=== PATIENT | male | born 1945 | race Caucasian/White ===

== ENCOUNTER 2020-04-11 18:35 | Inpatient (IN) | payer OTHER ==
[~2020-04-11] VITALS: Ht 172.7 cm; Wt 78.0 kg
[~2020-04-11 18:35] MED LIST: ASPIRIN325 PO; HYDROCHLOROTH12.5 MG PO; LISINOPRIL40 MG PO; PRAVASTATIN SOD40 MG PO
[2020-04-11 19:42] VITALS: BP 92/44
[2020-04-11 22:46] LABS: HEMATOCRIT 54.4 % (42.0-52.0); HEMOGLOBIN 17.5 gm/dL (14.0-18.0); MCH 32.6 pg (26.0-34.0); MCHC 32.2 g/dL (28.0-37.0); MCV 101.4 fL (80.0-100.0); PLATELET COUNT 513 thou/uL (150-400); RBC 5.36 mil/uL (4.50-6.00); RDW 13.6 % (10.5-14.5); WBC 18.7 thou/uL (4.0-11.0)
[2020-04-11 23:18] LABS: ALBUMIN 5.7 g/dL (3.4-5.0); ANION GAP 23 mmol/L (7-16); BUN 45 mg/dL (7-18); CALCIUM 11.8 mg/dL (8.5-10.1); CHLORIDE 96 mmol/L (98-107); CREATININE 5.1 mg/dL (0.7-1.3); DIRECT BILIRUBIN < 0.1 mg/dL (<0.1-0.2); GLUCOSE 199 mg/dL (74-106); SGOT 27 U/L (15-37); SGPT 25 U/L (30-65); SODIUM 128 mmol/L (136-145); TOTAL BILIRUBIN 0.2 mg/dL (0.2-1.0); TOTAL PROTEIN 11.6 g/dL (6.4-8.2); TROPONIN-I <0.06 ng/mL (<0.06)
[2020-04-11 23:20] LABS: CO2 9 mmol/L (21-32); POTASSIUM 8.3 mmol/L (3.5-5.1)
[2020-04-11 23:37] LABS: ABSOLUTE NEUTROPHILS 13.5 thou/uL (1.4-8.2); PLATELET ESTIMATE INCREASED
[2020-04-12 02:44] LABS: URINE BILIRUBIN 1+ (Negative); URINE BLOOD 2+ (Negative); URINE CLARITY CLOUDY; URINE COLOR YELLOW; URINE GLUCOSE-RANDOM* NEGATIVE (Negative); URINE KETONES TRACE (Negative); URINE LEUKOCYTES-REFLEX NEGATIVE (Negative); URINE NITRITE-REFLEX NEGATIVE (Negative); URINE PROTEIN (DIPSTICK) 2+ (Negative); URINE SPECIFIC GRAVITY >= 1.030 (1.005-1.035); URINE UROBILINOGEN 0.2 E.U./dl (0.2-1.0)
[2020-04-12 02:51] LABS: BACTERIA-REFLEX 1-9 Few /HPF (None Seen); SQUAMOUS 0-3 Few /LPF (0-3); URINE RBC 3-10 Few /HPF (0-2); URINE WBC-REFLEX 0-5 Rare /HPF (0-5)
[2020-04-12 02:52] LABS: CRYSTALS None Seen /LPF (None Seen); HYALINE CASTS >10 Many /LPF (None Seen); MUCUS 4-6 Moderate strn/LPF (None Seen)
[2020-04-12 05:42] LABS: HEMATOCRIT 48.6 % (42.0-52.0); HEMOGLOBIN 15.8 gm/dL (14.0-18.0); MCH 32.5 pg (26.0-34.0); MCHC 32.5 g/dL (28.0-37.0); MCV 99.8 fL (80.0-100.0); RBC 4.87 mil/uL (4.50-6.00); RDW 13.5 % (10.5-14.5); WBC 18.7 thou/uL (4.0-11.0)
[2020-04-12 05:46] LABS: CREATININE 4.8 mg/dL (0.7-1.3)
[2020-04-12 06:03] LABS: CALCIUM 9.5 mg/dL (8.5-10.1)
--- NOTE | 2020-04-12 07:19 | NUR ---
SPOKE WITH RT RAINER RE: PATIENT NEED FOR 10MG ALBUTEROL TREATMENT
--- NOTE | 2020-04-12 07:34 | NUR ---
DAUGHTER GIVEN UPDATE REGARDING FATHER'S CONDITION AND PLAN OF CARE
--- NOTE | 2020-04-12 07:34 | EKG ---
[facility] [place] [address] [address] ELECTROCARDIOGRAM REPORT Name: ABRAM MINAYA Room #: 170-16 ADM IN M.R.#: [id number] Admission: 04/12/20 Attend Phys: Jonathan Dacosta MD Discharge: Date of : 45 Report #: [id number] THIS REPORT FOR: cc: [facility] - Clinic physician unknown [facility] - Clinic physician unknown Renato Almeida MD [facility] ~ THIS REPORT FOR: //name// [facility] ED Test Date: 2020-04-11 Test Time: 19:13:26 Pat Name: ABRAM MINAYA Department: Room: 170 Gender: M Edge Blacker: NORA : 1945 Requested By: Kayleigh Gustafson Order Number: [id number] MD: Renato Almeida Measurements Intervals [place] Rate: 70 P: 64 OR: 164 QRS: -14 QRSD: 82 T: 73 QT: 367 QTc: 396 Interpretive Statements Sinus rhythm Abnormal R-wave progression, late transition Nonspecific repol abnormality, diffuse leads Minimal ST elevation, inferior leads Compared to ECG 04/05/2008 10:27:51 Early repolarization now present ST (T wave) deviation now present Electronically Signed On 04-12-2020 7:34:42 CDT by Renato Almeida [email or web address] <ELECTRONICALLY SIGNED> By: Renato Almeida MD, FACC 04/12/20 0734 12 12 Renato Almeida MD, FAC /EPI
[2020-04-12 07:53] LABS: URINE CREATININE-RANDOM* 407.5 mg/dL
[2020-04-12 08:58] VITALS: BP 123/50
[2020-04-12 09:52] LABS: CALCIUM 9.7 mg/dL (8.5-10.1); CREATININE 4.5 mg/dL (0.7-1.3)
[2020-04-12 11:58] LABS: URINE CREATININE-RANDOM* 324.3 mg/dL
[2020-04-12 12:45] VITALS: BP 120/58
[2020-04-12 14:20] VITALS: BP 142/68
[2020-04-12 16:15] VITALS: BP 138/59
[2020-04-12 16:19] VITALS: BP 1144/57
[2020-04-12 16:29] LABS: ALBUMIN 3.6 g/dL (3.4-5.0); CALCIUM 9.1 mg/dL (8.5-10.1); CREATININE 4.4 mg/dL (0.7-1.3); PHOSPHORUS 5.6 mg/dL (2.5-4.9)
[2020-04-12 16:31] LABS: POTASSIUM 4.6 mmol/L (3.5-5.1)
[2020-04-12 19:13] VITALS: BP 144/61
--- NOTE | 2020-04-12 19:37 | NUR ---
PATIENT ADNIT TO UNIT FROM ER AT 1645. A/O X4. SR ON MONITOR. LOW URINE OUT PUT. VSS. AFEBRILE. DENIES PAIN. UP WITH STANDBY ASSISTED. WILL KEEP MONITOR.
[2020-04-13 01:06] LABS: GLYCOHEMOGLOBIN (HGB A1C) 5.5 % (4.8-5.6)
--- NOTE | 2020-04-13 03:18 | NUR ---
Pt. rested quietly during the night when checked on during frequent rounds. He offers no c/o pain or nausea. Up to the bathroom with assistance of one. Pt. has had two loose stools and stool sample sent to the lab to rule out c-diff.
[2020-04-13 06:10] LABS: CALCIUM 7.9 mg/dL (8.5-10.1)
[2020-04-13 06:13] LABS: HEMATOCRIT 31.3 % (42.0-52.0); MCH 32.8 pg (26.0-34.0); MCHC 33.6 g/dL (28.0-37.0); MCV 97.6 fL (80.0-100.0); RBC 3.2 mil/uL (4.50-6.00); RDW 12.9 % (10.5-14.5); WBC 8.3 thou/uL (4.0-11.0)
[2020-04-13 06:14] LABS: HEMOGLOBIN 10.5 gm/dL (14.0-18.0)
[2020-04-13 06:34] LABS: POTASSIUM 3.3 mmol/L (3.5-5.1)
[2020-04-13 07:00] VITALS: BP 110/47
--- NOTE | 2020-04-13 09:11 | NUR ---
ASSUMED CARE OF PATIENT NOW. ASSESSMENT CHARTED. MEDS GIVEN PER MAR; FLU SHOT ADMINISTERED BY ANOTHER PROVIDER ABOUT 2 WEEKS AGO PER PATIENT.VSS. PATIENT STATES HE HASN'T HAD ANY NAUSEA SINCE ADMISSION AND LAST STOOL WAS FORMED. PATIENT GETS UP INDEPENDENTLY. NAHCO3 WAS D/C'D BY DOCTOR. LABS ARE IMPROVING. NACL INFUSING ON L FA NO ISSUES. PATIENT DENIES PAIN AND VOICES NO CONCERNS OTHER THAN HUNGER. AWAITING EVAL FROM GI AND NEPHROLOGY. WILL CONTINUE TO MONIOR
--- NOTE | 2020-04-13 14:04 | NUR ---
PT ADMITTED RELATED TO HYPERKALEMIA, MARILEE, COVID PUI. CM REVIEWED CHART AND SPOKE WITH CARE TEAM. CM CALLED AND SPOKE WITH PT AOVER THE PHONE THIS AM. PT APPEARED TO BE A&O X4. CM ROLE INTRODUCED. PT INDICATED THAT HE RESIDES AT HOME WITH HIS AND SON. HE INDICATED THAT THERE ARE 3 THEN 5 STEPS TO ENTER HIS HOME AND A FULL FLIGHT TO THE BASEMENT. 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 PT INDICATED NO DME OR HH HX. PT INDICATED HIS PCP IS DR. FALGUNI ROSARIO. PT STATED HE PLANS TO RETURN HOME ONCE MEDICALLY STABLE. CM TO FOLLOW INDICATED WITH DC PLANNING.
[2020-04-13 19:40] VITALS: BP 129/58
--- NOTE | 2020-04-13 19:50 | NUR ---
THIS RN AMENDED NURSING ASSESSMENT DONE BY KAYKAY/TRAILER BODY ASSEMBLER AND I AGREE WITH NURSING NOTE DONE BY KAYKAY/TRAILER BODY ASSEMBLER.
--- NOTE | 2020-04-14 04:57 | NUR ---
Pt. rested quietly at intervals during the night when checked on during frequent rounds. Pt. offers no c/o pain or nausea. He has been up to the bathroom with standby assistance.
[2020-04-14 07:00] LABS: ALBUMIN 2.6 g/dL (3.4-5.0); CALCIUM 7.6 mg/dL (8.5-10.1); CREATININE 1.3 mg/dL (0.7-1.3); PHOSPHORUS 1.8 mg/dL (2.5-4.9); POTASSIUM 3.7 mmol/L (3.5-5.1)
[2020-04-14 07:01] VITALS: BP 141/69
[2020-04-14] MEDS ORDERED: FLAGYL500 M1 PO (11:28)
[2020-04-14] MEDS ORDERED: PROTONIX40 M2 PO (11:28)
[2020-04-14 12:09] VITALS: BP 141/69
--- NOTE | 2020-04-14 12:10 | NUR ---
CARE TEAM INDICATED THAT LONG A ECHAVARRIA WAS REMOVED AND PT WAS ABLE TO VOID PT COULD DC HOME TODAY TO SELF CARE. NO OTHER CM INTERVENTION INDICATED. CASE CLOSED.
--- NOTE | 2020-04-14 14:56 | NUR ---
A/O*4, calm and pleasant. knight catheter out at 9:25am, the first urination was 20 ml at 10:05am, the second 80ml at 1110am. patient claimed that he would not do coloscopy tomorrow, the staff paged Dr. Dennison, awaiting for response.
== END 2020-04-14 13:00 | disposition home or self-care (01) | DRG 871 ==
LOC: ER 18:35 → 4W 04-12 00:26 → EROBS 04-12 00:26 → 4W 04-12 16:29
PROVIDERS: Emergency Medicine; Internal Medicine Nephrology; Nurse Practitioner Family; ADMIT Hospitalist; ATTEND Hospitalist
DX: A41.9 Sepsis, unspecified organism (principal); N17.0 Acute kidney failure with tubular necrosis; E87.1 Hypo-osmolality and hyponatremia; I10 Essential (primary) hypertension; E87.5 Hyperkalemia; F17.210 Nicotine dependence, cigarettes, uncomplicated; E78.5 Hyperlipidemia, unspecified; D64.9 Anemia, unspecified; K52.9 Noninfective gastroenteritis and colitis, unspecified; G47.00 Insomnia, unspecified; T50.2X5A Adverse effect of carbonic-anhydrase inhibitors, benzothiadiazides and other diuretics, initial encounter; Z20.828 Contact with and (suspected) exposure to other viral communicable diseases; Z86.73 Personal history of transient ischemic attack (TIA), and cerebral infarction without residual deficits; Z80.0 Family history of malignant neoplasm of digestive organs; Y92.89 Other specified places as the place of occurrence of the external cause; Z79.899 Other long term (current) drug therapy; Z23 Encounter for immunization
CPT/HCPCS: 10045